=== PATIENT | male | born 1980 | race African-American/Black ===

== ENCOUNTER → 2018-07-26 | Emergency (ER) | payer SELFPAY ==
[~2018-07-26] VITALS: Ht 177.8 cm; Wt 77.0 kg
[2018-07-26 19:45] VITALS: BP 145/86
== END | disposition home or self-care (01) ==
LOC: ER 19:43
DX: Z53.9 Procedure and treatment not carried out, unspecified reason (principal); F10.129 Alcohol abuse with intoxication, unspecified
CPT/HCPCS: 99283